=== PATIENT | female | born 1990 | race Caucasian/White ===

== ENCOUNTER 2017-04-28 08:38 | Emergency (ER) | payer OTHER ==
[2017-04-28] MEDS: IBUPROFEN 600 MG TAB PO (10:21)
[2017-04-28] MEDS: DIPHTH/TET/ACEL PERTUSS (ADULT) 0.5 ML VIAL IM* (11:14)
== END 2017-04-28 13:04 | disposition home or self-care (01) ==
LOC: FTE 08:38
DX: S80.01XA Contusion of right knee, initial encounter (principal); S13.4XXA Sprain of ligaments of cervical spine, initial encounter; V49.40XA Driver injured in collision with unspecified motor vehicles in traffic accident, initial encounter
CPT/HCPCS: 70450; 72040; 72072; 72100; 73562; 90471; 90715; 99284-25